=== PATIENT | female | born 1990 | race African-American/Black ===

== ENCOUNTER 2018-06-11 10:01 | Emergency (ER) | payer BC, OTHER ==
[~2018-06-11] VITALS: Ht 167.6 cm; Wt 80.7 kg
[2018-06-11] MEDS ORDERED: NKM (10:14)
[2018-06-11 10:41] VITALS: BP 102/62
[2018-06-11 10:44] LABS: BASOPHILS % (AUTO) 1.7 % (0.0-2.0); HEMATOCRIT 43.4 % (37.0-47.0); HEMOGLOBIN 14.1 G/DL (12.0-16.0); LYMPHOCYTES % (AUTO) 27.7 % (20.0-45.0); MEAN CORPUSCULAR VOLUME 81 FL (80-99); MONOCYTES % (AUTO) 7.8 % (1.0-10.0); NEUTROPHILS % (AUTO) 59.8 % (45.0-75.0); PLATELET COUNT 295 K/UL (150-450); RED BLOOD COUNT 5.35 M/UL (4.20-5.40); RED CELL DISTRIBUTION WIDTH 12.6 % (11.6-14.8); WHITE BLOOD COUNT 6.7 K/UL (4.8-10.8)
[2018-06-11] MEDS ORDERED: Ketorolac 30mg Inj IV ONE (10:45)
[2018-06-11 10:55] LABS: ANION GAP 10 mmol/L (5-15); BLOOD UREA NITROGEN 10 mg/dL (7-18); CALCIUM 9.5 MG/DL (8.5-10.1); CARBON DIOXIDE 23 MMOL/L (21-32); CHLORIDE 103 MMOL/L (98-107); CREATININE 0.9 MG/DL (0.55-1.30); POTASSIUM 3.8 MMOL/L (3.5-5.1); SODIUM 136 MMOL/L (136-145)
[2018-06-11 11:06] LABS: ALANINE AMINOTRANSFERASE 24 U/L (12-78); ALBUMIN 4.1 G/DL (3.4-5.0); ALKALINE PHOSPHATASE 56 U/L (46-116); ASPARTATE AMINO TRANSFERASE 22 U/L (15-37)
--- NOTE | 2018-06-11 12:33 | Emergency Room Report ---
History of Present Illness General Chief Complaint: Abdominal Pain Source: Patient Present Illness HPI This patient complains of right lower quadrant abdominal/pelvic pain. Patient states she was at work today and suddenly developed the pain. She states the pain is sharp. She denies recent illness. She denies fever or chills. She denies nausea or vomiting. She denies abnormal vaginal discharge. She states that her menses is irregular. Her last ventral period was the 16th of last month. She has an IUD in place. She denies dysuria or hematuria. She has no other complaints. Allergies: Coded Allergies: Doug (Verified Allergy, Unknown, 06/11/18) WATERMELON (Verified Allergy, Unknown, 06/11/18) Uncoded Allergies: NUTS (Allergy, Unknown, 06/11/18) Patient History Past Medical History: none, other - Brain tumor Social History: Denies: smoking, alcohol use, drug use Last Menstrual Period: 05/15/2018 Now: No Reviewed Nursing Documentation: PMH: Agreed; PSxH: Agreed Nursing Documentation-PMH Past Medical History: No History, Except For Review of Systems All Other Systems: negative except mentioned in HPI Physical Exam Vital Signs Date Time Temp Pulse Resp B/P (MAP) Pulse Ox O2 Delivery O2 Flow Rate FiO2 06/11/18 10:11 98.0 73 14 118/81 97 Room Air 98.1 Sp02 EP Interpretation: reviewed, normal General Appearance: no apparent distress, alert, GCS 15, non-toxic Head: normocephalic, atraumatic Eyes: bilateral eye normal inspection, bilateral eye PERRL ENT: hearing grossly normal, normal pharynx, no angioedema, normal voice Neck: full range of motion, supple/symm/no masses Respiratory: chest non-tender, lungs clear, normal breath sounds, no respiratory distress, no retraction, no accessory muscle use, speaking full sentences Cardiovascular #1: regular rate, rhythm, no edema Gastrointestinal: soft, non-distended, no guarding, no rebound, tenderness - TTP in the R. pelvis Rectal: deferred Musculoskeletal: back normal, gait/station normal, normal range of motion, non- tender Neurologic: alert, oriented x3, responsive, motor strength/tone normal, sensory intact, speech normal Psychiatric: judgement/insight normal, memory normal, mood/affect normal, no suicidal/homicidal ideation Skin: normal color, no rash, warm/dry, well hydrated Medical Decision Making Diagnostic Impression: Primary Impression: Abdominal pain ER Course This patient has tenderness to palpation and pain very low in her right pelvis. This is in the vicinity of her right ovary. She underwent ultrasound of the pelvis did show a right ovarian cyst. Likely this is the etiology of her symptoms. I also obtain an ultrasound to assess the appendix was not identified. Probably this is because it is not inflamed. The patient's abdominal exam is not classic for appendicitis. Further discussion with the patient and she felt that she would like to avoid a CT of her abdomen and the radiation associated with that. She will do watchful waiting. She also states she knows and she has a urinary tract infection she doesn't feel like she has one now. She would like to leave before getting the results of her urinalysis. The patient is an employee here at [employer] [facility] and will be here tomorrow so she can easily return for further care for symptoms worsen. She was educated on close return precautions. Laboratory Tests Test 06/11/18 10:30 White Blood Count 6.7 K/UL (4.8-10.8) Red Blood Count 5.35 M/UL (4.20-5.40) Hemoglobin 14.1 G/DL (12.0-16.0) Hematocrit 43.4 % (37.0-47.0) Mean Corpuscular Volume 81 FL (80-99) Mean Corpuscular Hemoglobin 26.4 PG (27.0-31.0) L Mean Corpuscular Hemoglobin Concent 32.6 G/DL (32.0-36.0) Red Cell Distribution Width 12.6 % (11.6-14.8) Platelet Count 295 K/UL (150-450) Mean Platelet Volume 6.8 FL (6.5-10.1) Neutrophils (%) (Auto) 59.8 % (45.0-75.0) Lymphocytes (%) (Auto) 27.7 % (20.0-45.0) Monocytes (%) (Auto) 7.8 % (1.0-10.0) Eosinophils (%) (Auto) 3.0 % (0.0-3.0) Basophils (%) (Auto) 1.7 % (0.0-2.0) Sodium Level 136 MMOL/L (136-145) Potassium Level 3.8 MMOL/L (3.5-5.1) Chloride Level 103 MMOL/L (98-107) Carbon Dioxide Level 23 MMOL/L (21-32) Anion Gap 10 mmol/L (5-15) Blood Urea Nitrogen 10 mg/dL (7-18) Creatinine 0.9 MG/DL (0.55-1.30) Estimate Glomerular Filtration Rate > 60 mL/min (>60) Glucose Level 94 MG/DL (74-106) Calcium Level 9.5 MG/DL (8.5-10.1) Total Bilirubin 1.0 MG/DL (0.2-1.0) Aspartate Amino Transferase (AST) 22 U/L (15-37) Alanine Aminotransferase (ALT) 24 U/L (12-78) Alkaline Phosphatase 56 U/L (46-116) Total Protein 8.1 G/DL (6.4-8.2) Albumin 4.1 G/DL (3.4-5.0) Globulin 4.0 g/dL Albumin/Globulin Ratio 1.0 (1.0-2.7) Lipase 167 U/L (73-393) Human Chorionic Gonadotropin, Quant 1 mIU/mL (1-6) CT/MRI/US Diagnostic Results CT/MRI/US Diagnostic Results : Imaging Test Ordered: US pelvis, US abd Impression Right ovarian cyst. See official report in EMR. Appendix identified. See official report in EMR. Last Vital Signs Date Time Temp Pulse Resp B/P (MAP) Pulse Ox O2 Delivery O2 Flow Rate FiO2 06/11/18 11:16 98.1 06/11/18 10:41 72 15 102/62 98 Room Air Status: improved Disposition: HOME, SELF-CARE Condition: Improved Referrals: [facility] (PCP) Patient Instructions: Abdominal Pain, Adult Cristal Short DO Jun 11, 2018 12:33
--- NOTE | 2018-06-11 13:42 | Diagnostic Imaging Report ---
Indication: Right-sided pelvic pain Technique: Graded compression images of the right lower quadrant Comparison: Findings: The appendix, either normal or abnormal could not be demonstrated Impression: Nonvisualization of the appendix. Therefore nondiagnostic for the presence or absence of acute appendicitis
--- NOTE | 2018-06-11 13:48 | Diagnostic Imaging Report ---
. Indication: Right-sided pelvic pain, negative test Technique: Transabdominal and transvaginal images Comparison: none Findings: Uterus measures 9.5 cm length by 4 cm AP. Within the endometrium there is an intrauterine device. Endometrium is not thickened, measures 5 mm in thickness. Unremarkable myometrium. Trace free cul-de-sac fluid is demonstrated. Right ovary measures 3.6 cm in length, demonstrates a small hemorrhagic follicle or corpus luteum. The left ovary measures 3.4 cm in length. No adnexal mass demonstrated. Impression: Intrauterine device in place Trace free pelvic fluid, presumably physiologic Small hemorrhagic right ovarian corpus luteum or follicle
[2018-06-11 14:31] VITALS: BP 109/65
[2018-06-11 14:32] LABS: APPEARANCE,URINE CLEAR; BILIRUBIN, URINE NEGATIVE (NEGATIVE); COLOR,URINE YELLOW; GLUCOSE, URINE (UA) NEGATIVE (NEGATIVE); KETONES,URINE NEGATIVE (NEGATIVE); LEUKOCYTE ESTERASE ,URINE NEGATIVE (NEGATIVE); NITRITE,URINE NEGATIVE (NEGATIVE); PH,URINE 5 (4.5-8.0); PROTEIN,URINE NEGATIVE (NEGATIVE); UROBILINOGEN,URINE NORMAL MG/DL (0.0-1.0)
== END 2018-06-11 14:31 | disposition home or self-care (01) ==
LOC: EEVIPCON 10:01 → EMR 10:45
DX: R10.31 Right lower quadrant pain (principal); Z91.018 Allergy to other foods; Z97.5 Presence of (intrauterine) contraceptive device; N83.11 Corpus luteum cyst of right ovary
CPT/HCPCS: 36415; 76705; 76830; 76856; 80053; 81003; 83690; 84702; 85025; 96374; 99284; J1885